=== PATIENT | male | born 1985 | race African-American/Black ===

== ENCOUNTER 2016-10-02 14:16 | Inpatient (IN) | payer MEDICAID, OTHER ==
--- NOTE | 2016-10-02 16:03 | ED ---
General Adult HPI - General Chief complaint: Psychiatric Symptoms Stated complaint: Mental Health Time Seen by Provider: 10/02/16 14:30 Source: patient, RN notes reviewed Mode of arrival: ambulatory Limitations: no limitations - History of Present Illness Initial comments: This is a 31-year-old male with past medical history significant for depression. Patient states on multiple medications for depression. Patient comes into the emergency department today because 3 days ago he is kicked out of school friends house and now is in a town where he knows no one has nowhere to stay he states is very depressed. Patient states he's thinking of killing himself by hanging himself or cutting himself or doing whatever he can harm himself. Patient is very tearful throughout the interview. Patient states he has never tried to commit suicide in the past. Patient denies any drug use patient denies any alcohol use. Patient denies any physical complaints today. Patient denies any headache patient denies numbness weakness. Patient denies any chest pain difficulty breathing or shortness of breath. Patient denies any palpitations. Patient denies abdominal pain patient denies nausea vomiting diarrhea. Patient denies any recent fever chills or cough. - Related Data Home Medications Medication Instructions Recorded Confirmed Amitriptyline HCl [Elavil] 10 mg PO HS 10/02/16 10/02/16 Unknown Anxiety Med 1 tab PO DAILY PRN 10/02/16 10/02/16 Venlafaxine HCl ER [Effexor Xr] 150 mg PO DAILY 10/02/16 10/02/16 Allergies Allergy/AdvReac Type Severity Reaction Status Date / Time No Known Allergies Allergy Verified 10/02/16 15:25 Review of Systems ROS Statement: Those systems with pertinent positive or pertinent negative responses have been documented in the HPI. ROS Other: All systems not noted in ROS Statement are negative. Past Medical History Past Medical History: No Reported History Past Surgical History: No Surgical Hx Reported Past Psychological History: Anxiety, Depression Smoking Status: Never smoker Past Alcohol Use History: None Reported Past Drug Use History: None Reported General Exam - General Exam Comments Initial Comments: GENERAL: Patient is well-developed and well-nourished. Patient is nontoxic and well- hydrated and is in no acute distress. ENT: Neck is soft and supple. No significant lymphadenopathy is noted. Oropharynx is clear. Moist mucous membranes. Neck has full range of motion without eliciting any pain. EYES: The sclera were anicteric and conjunctiva were pink and moist. Extraocular movements were intact and pupils were equal round and reactive to light. Eyelids were unremarkable. PULMONARY: Unlabored respirations. Good breath sounds bilaterally. No audible rales rhonchi or wheezing was noted. CARDIOVASCULAR: There is a regular rate and rhythm without any murmurs gallops or rubs. ABDOMEN: Soft and nontender with normal bowel sounds. SKIN: Skin is clear with no lesions or rashes and otherwise unremarkable. NEUROLOGIC: Patient is alert and oriented x3. Cranial nerves II through XII are grossly intact. Motor and sensory are also intact. Normal speech, volume and content. Symmetrical smile. MUSCULOSKELETAL: Normal extremities with adequate strength and full range of motion. LYMPHATICS: No significant lymphadenopathy is noted PSYCHIATRIC: Patient is very difficult to hold interview and states that he is depressed and wants to harm himself. Limitations: no limitations Course Vital Signs 10/02/16 10/02/16 14:21 16:56 Temperature 98.2 F 97.8 F Pulse Rate 94 Pulse Rate [ 71 Right] Respiratory 20 15 Rate Blood Pressure 165/107 Blood Pressure 129/79 [Right Arm] O2 Sat by Pulse 98 98 Oximetry Medical Decision Making - Lab Data Lab Results 10/02/16 Range/Units 14:44 Urine Opiates Screen Not Detected (NotDetected) Ur Oxycodone Screen Not Detected (NotDetected) Urine Methadone Screen Not Detected (NotDetected) Ur Propoxyphene Screen Not Detected (NotDetected) Ur Barbiturates Screen Not Detected (NotDetected) U Tricyclic Antidepress Not Detected (NotDetected) Ur Phencyclidine Scrn Not Detected (NotDetected) Ur Amphetamines Screen Not Detected (NotDetected) U Methamphetamines Scrn Not Detected (NotDetected) U Benzodiazepines Scrn Not Detected (NotDetected) Urine Cocaine Screen Not Detected (NotDetected) U Marijuana (THC) Screen Detected H (NotDetected) Disposition Clinical Impression: Suicidal ideation, Depression Disposition: ADMITTED IP TO THIS [facility] Time of Disposition: 21:15
[2016-10-02] MEDS ORDERED: MAG HYDROX/AL HYDROX/SIMETH 30 ML CUP PO PRN (16:56)
[2016-10-02] MEDS ORDERED: ACETAMINOPHEN TAB 325 MG TAB PO PRN (16:56)
[2016-10-02] MEDS ORDERED: MAGNESIUM HYDROXIDE 2,400 MG/10 ML CUP PO PRN (16:56)
[2016-10-02 17:02] VITALS: RESP 18
[2016-10-02] MEDS ORDERED: OLANZapine 5 MG TAB ONE (17:55)
[2016-10-02] MEDS ORDERED: OLANZapine 5 MG TAB PO ONE (18:05)
[2016-10-03 00:39] VITALS: BP 121/84; PULSE 85; TEMP 97.4
[2016-10-03] MEDS ORDERED: VENLAFAXINE HCL ER 150 MG CAP PO SCH (09:00)
[2016-10-03 09:06] LABS: Basophils % (A) 0 %; CH 27.2; CHCM 33.9; Eosinophils # (A) 0.1 k/uL (0-0.7); Eosinophils % (A) 1 %; HCT 44.5 % (39.0-53.0); HDW 2.26; HGB 14.9 gm/dL (13.0-17.5); Luc # (Auto) 0.19; Luc % (Auto) 3; Lymphocytes # (A) 1.7 k/uL (1.0-4.8); Lymphocytes % (A) 26 %; MCH 26.9 pg (25.0-35.0); MCHC 33.4 g/dL (31.0-37.0); MCV 80.6 fL (80.0-100.0); Monocytes # (A) 0.3 k/uL (0-1.0); Monocytes % (A) 5 %; Neutrophils # (A) 4.2 k/uL (1.3-7.7); Neutrophils % (A) 64 %; RBC 5.53 m/uL (4.30-5.90); WBC 6.5 k/uL (3.8-10.6); WBC (Perox) 6.76
[2016-10-03 09:20] LABS: ALT 31 U/L (21-72); AST 29 U/L (17-59); Alkaline Phosphatase 67 U/L (38-126); Anion Gap 12 mmol/L; Blood Urea Nitrogen 16 mg/dL (9-20); Calcium 10.1 mg/dL (8.4-10.2); Carbon Dioxide 25 mmol/L (22-30); Chloride 107 mmol/L (98-107); Glucose 130 mg/dL (74-99); Non-African American GFR(MDRD) >60 (>60 ml/min/1.73 sqM); Potassium 4.3 mmol/L (3.5-5.1); Sodium 144 mmol/L (137-145); Total Bilirubin 0.7 mg/dL (0.2-1.3); Total Protein 7.9 g/dL (6.3-8.2)
[2016-10-03] MEDS ORDERED: VENLAFAXINE HCL ER 75 MG CAP PO SCH (09:51)
--- NOTE | 2016-10-03 10:06 | P.HP ---
Psychiatric H&P - . H&P Date: 10/03/16 History & Physical: Allergies Allergy/AdvReac Type Severity Reaction Status Date / Time No Known Allergies Allergy Verified 10/02/16 15:25 Vital Signs Temp 97.4 F L 10/03/16 00:37 Pulse 85 10/03/16 00:37 Resp 18 10/03/16 00:37 BP 121/84 10/03/16 00:37 Pulse Ox 97 10/02/16 17:02 Intake & Output 10/02/16 10/03/16 10/03/16 18:59 06:59 18:59 Weight 86.183 kg Laboratory Last Values WBC 6.5 k/uL (3.8-10.6) 10/03/16 08:44 RBC 5.53 m/uL (4.30-5.90) 10/03/16 08:44 Hgb 14.9 gm/dL (13.0-17.5) 10/03/16 08:44 Hct 44.5 % (39.0-53.0) 10/03/16 08:44 MCV 80.6 fL (80.0-100.0) 10/03/16 08:44 MCH 26.9 pg (25.0-35.0) 10/03/16 08:44 MCHC 33.4 g/dL (31.0-37.0) 10/03/16 08:44 RDW 13.0 % (11.5-15.5) 10/03/16 08:44 Plt Count 233 k/uL (150-450) 10/03/16 08:44 Neutrophils % 64 % 10/03/16 08:44 Lymphocytes % 26 % 10/03/16 08:44 Monocytes % 5 % 10/03/16 08:44 Eosinophils % 1 % 10/03/16 08:44 Basophils % 0 % 10/03/16 08:44 Neutrophils # 4.2 k/uL (1.3-7.7) 10/03/16 08:44 Lymphocytes # 1.7 k/uL (1.0-4.8) 10/03/16 08:44 Monocytes # 0.3 k/uL (0-1.0) 10/03/16 08:44 Eosinophils # 0.1 k/uL (0-0.7) 10/03/16 08:44 Basophils # 0.0 k/uL (0-0.2) 10/03/16 08:44 Urine Opiates Screen Not Detected (NotDetected) 10/02/16 14:44 Ur Oxycodone Screen Not Detected (NotDetected) 10/02/16 14:44 Urine Methadone Screen Not Detected (NotDetected) 10/02/16 14:44 Ur Propoxyphene Screen Not Detected (NotDetected) 10/02/16 14:44 Ur Barbiturates Screen Not Detected (NotDetected) 10/02/16 14:44 U Tricyclic Antidepress Not Detected (NotDetected) 10/02/16 14:44 Ur Phencyclidine Scrn Not Detected (NotDetected) 10/02/16 14:44 Ur Amphetamines Screen Not Detected (NotDetected) 10/02/16 14:44 U Methamphetamines Scrn Not Detected (NotDetected) 10/02/16 14:44 U Benzodiazepines Scrn Not Detected (NotDetected) 10/02/16 14:44 Urine Cocaine Screen Not Detected (NotDetected) 10/02/16 14:44 U Marijuana (THC) Screen Detected (NotDetected) H 10/02/16 14:44 10/03/16 09:27 DATE OF SERVICE: 10/03/2016 IDENTIFYING DATA: This patient is a 31-year-old single -Malawian male who was admitted to the mental health unit through urgency room on a voluntary admission.. HISTORY OF PRESENT ILLNESS: The patient presents with report of being kicked out by his girlfriend, feeling worthless, hopeless, helpless. States he began to think that he was a loser and would never get out of this situation, and that he should just kill himself. Had thoughts of going to a store and buying a blade, or rope or something else. States he did not kill himself or go to the store because he was feeling weak he hadn't eaten and tired. States that he has been unable to keep a job for longer than a month. He is currently taking Effexor XR 150 mg and some unknown dose of amitriptyline. States he has had trials of different medications, with 1 psychiatric admission, and one observation in a [facility]. Reports depressed mood, suicidal ideation, helplessness, hopelessness, worthlessness. Patient does not endorse periods of increased energy/decreased need for sleep/ risk taking behavior. Patient does not endorse hearing voices or believing that he has special davis or that people can communicate with him or control his thoughts. . PAST PSYCHIATRIC HISTORY: Has been to ER in [place], observed, one admission to [facility]? [facility] [place], seeing a therapist who recommended he check in voluntarily. Treated with zoloft, effexor xr, fluoxetine, trazoden, amitriptyline. ? not sure if he took abilify. Corinne Jose in [place], last time saw her a few months ago Taking Effexo XR 150mg, ?amitriptyline 10mg. . PAST MEDICAL HISTORY: denies. ALLERGIES: No known drug allergies. CHEMICAL DEPENDENCY HISTORY: ETOH, weekends, maybe few times in week, 6pack might be the most he drinks over the night, drank liquor but cannot recall when , maybe last, marijuana weekly. denies cocaine, meth, denies injecting drug. Denies misuse of prescription drugs. FAMILY PSYCHIATRIC HISTORY: Does not know.. FAMILY CHEMICAL DEPENDENCY HISTORY:Does not know. LEGAL HISTORY: Denies current, past hx of disorderly conduct 2009. . SOCIAL HISTORY: [Born in [place], raised in , raised by his single mother, 2 sisters and 1 brother but never lived with them, half sibling and raised by their bio-mothers. Academically average but kicked out due to lack of attendance, GED 2005. He moved away at to [place], them moved to [place]. Never . Had been involved with GF who kicked him out for 2 years on and off. SHe kicked him out due to him lying, patient is vague about this. Says he has been unable to work more than a month. Has a half sister here in . Mother lives in [place]. MENTAL STATUS EXAM: Patient alert and oriented 3, good eye contact, fair groomed in hospital attire. Speech normal volume, rate and production. Psychomotor retardation Coherent, logical and goal directed thought process. No JEANNIE, no FOI. No TB/TW/ TI Denied auditory and visual hallucinations. Denied paranoid ideation, delusions or IOR. Memory grossly intact Cognition average Mood dysphoric, affect constricted, congruent with mood. + suicidal ideation, denies homicidal ideation. Insight none; Judgment grossly impaired for treatment purposes . STRENGTHS: Verbal. WEAKNESSES: Lack of housing/income. IMPRESSIONS: 31-year-old single -Mal[place]ian male, with history of depression, multiple trials of antidepressants with unknown response. Now with social economic stressor of being homeless, became suicidal No clear evidence of significant substance use, although his UDS was positive for cannabis. No evidence of kelly or hypomania or psychosis, no episodes endorsed in the past of kelly hypomania or psychosis. Vague about childhood, and no history related to family mental illness or substance use. Depressive disorder, unspecified R/O major depressive disorder recurrent R/O adjustment disorder with depression Cannabis disorder use, moderate PLAN: Continue psychiatric inpatient hospitalization, for safety purposes, assessment and treatment of mental illness. Suicide precaution 15 minute checks. Release of information to his treating psychiatrists in [place]. Increase Effexor XR to 225 mg daily. Discussed lithium as helpful and depression as well as suicide. Patient agreed. Discussed discharge planning with respect to housing, patient has no one here that he can rely upon for possible housing so he will have to be discharged to a [facility]. Will need to begin setting up follow-up appointments with [facility]. Encouraged to attend groups. Assess and monitor response to treatment. 10/03/16 09:56
--- NOTE | 2016-10-03 12:52 | P.DS ---
Providers Date of admission: 10/02/16 16:54 Attending physician: Oxana Looney MD Consults: 10/02/16 16:56 Consult Physician Routine Consulting Provider: Milind England Consult Reason/Comments: follow up H & P Do you want consulting provider notified?: Yes Primary care physician: Stated None Hospital Course: Received news from staff that patient had contacted his cousin, from [place], who it turns out is now in town. Cousin has told patient that if he wants to he can return with him to [place] and stay with him. Called patient he came and said he had good news that he can go stay with his cousin and his cousin will help him out. Patient's mood was euthymic, affect full range normal intensity. Smiling. Patient denied suicidal ideation, reported "remember I told you that it was just my situation" MENTAL STATUS EXAM: Patient alert and oriented 3, good eye contact, fair groomed in hospital attire. Speech normal volume, rate and production. No psychomotor retardation Coherent, logical and goal directed thought process. No JEANNIE, no FOI. No TB/TW/ TI Denied auditory and visual hallucinations. Denied paranoid ideation, delusions or IOR. Memory grossly intact Cognition average Mood euthymic, affect full range, congruent with mood. Denies suicidal ideation, denies homicidal ideation. Insight none; Judgment grossly impaired for treatment purposes IMPRESSIONS: 31-year-old single -[place] male, with history of depression, multiple trials of antidepressants with unknown response. Now with social economic stressor of being homeless, became suicidal No clear evidence of significant substance use, although his UDS was positive for cannabis. No evidence of kelyl or hypomania or psychosis, no episodes endorsed in the past of kelly hypomania or psychosis. Vague about childhood, and no history related to family mental illness or substance use. ADMISSION DIAGNOSES: Depressive disorder, unspecified R/O major depressive disorder recurrent R/O adjustment disorder with depression Cannabis disorder use, moderate DISCHARGE DIAGNOSES: Homelessness Depression, unspecified versus R/O adjustment disorder Cannabis disorder use R/O malingering PLAN: Patient's mood resolved, suicidal ideation resolved Can be discharged. He reports he has one week of effexor 150mg will give one week. Patient will f/u with outpatient clinic in [place]. Pertinent Studies: none Procedures: none Plan - Discharge Summary New Discharge Prescriptions: No Action Venlafaxine HCl ER [Effexor Xr] 150 mg PO DAILY Amitriptyline HCl [Elavil] 10 mg PO HS Unknown Anxiety Med 1 tab PO DAILY PRN PRN Reason: Anxiety Discharge Medication List Amitriptyline HCl [Elavil] 10 mg PO HS 10/02/16 [History] Unknown Anxiety Med 1 tab PO DAILY PRN 10/02/16 [History] Venlafaxine HCl ER [Effexor Xr] 150 mg PO DAILY 10/02/16 [History] Follow up Appointment(s)/Referral(s): None,Stated [Primary Care Provider] - 1-2 days
--- NOTE | 2016-10-03 14:01 | P.CONS ---
History of Present Illness - Reason for Consult Consult date: 10/03/16 Medical management - History of Present Illness This is a 31-year-old -[place] male with past history of depression and anxiety. Patient states he was feeling suicidal after he broke up with his girlfriend and also got kicked out of his current living situation. Patient apparently is from [place] and moved here 3 weeks ago. He states he was feeling very hopeless as he had no place to live no money and no job. He states his suicidal thoughts were worsening and he came into [facility] for evaluation. Blood sugar was 1:30, TSH 1.240, urine drug screen was positive for marijuana. Patient was admitted to the mental health unit. Review of Systems All systems: negative Constitutional: Denies chills, Denies fever Eyes: denies blurred vision, denies pain Ears, nose, mouth and throat: Denies headache, Denies sore throat Cardiovascular: Denies chest pain, Denies shortness of breath Respiratory: Denies cough Gastrointestinal: Denies abdominal pain, Denies diarrhea, Denies nausea, Denies vomiting Musculoskeletal: Denies myalgias Integumentary: Denies pruritus, Denies rash Neurological: Denies numbness, Denies weakness Psychiatric: Reports depression, Reports hopelessness, Reports suicidal ideation , Denies anxiety Endocrine: Denies fatigue, Denies weight change Past Medical History Past Medical History: No Reported History Past Surgical History: No Surgical Hx Reported Past Psychological History: Anxiety, Depression Smoking Status: Never smoker Past Alcohol Use History: None Reported Past Drug Use History: None Reported Medications and Allergies Home Medications Medication Instructions Recorded Confirmed Type Amitriptyline HCl [Elavil] 10 mg PO HS 10/02/16 10/02/16 History Allergies Allergy/AdvReac Type Severity Reaction Status Date / Time No Known Allergies Allergy Verified 10/02/16 15:25 Physical Exam Vitals: Vital Signs Temp Pulse Pulse Resp BP BP Pulse Ox 10/03/16 00:37 97.4 F L 85 18 121/84 10/02/16 17:02 98.6 F 76 18 134/93 97 10/02/16 16:56 97.8 F 71 15 129/79 98 10/02/16 14:21 98.2 F 94 20 165/107 98 Gen: This is a 31-year-old -[place]vad[place] male. He is cooperative and appears to be in no acute distress. HEENT: Head is atraumatic, normocephalic. Pupils equal, round. Sclerae is anicteric. NECK: Supple. No JVD. No lymphadenopathy. No thyromegaly. LUNGS: Clear to auscultation. No wheezes or rhonchi. No intercostal retractions. HEART: Regular rate and rhythm. No murmur. ABDOMEN: Soft. Bowel sounds are present. No masses. No tenderness. EXTREMITIES: No pedal edema. No calf tenderness. NEUROLOGICAL: Patient is awake, alert and oriented x3. Cranial nerves 2 through 12 are grossly intact. Results CBC & Chem 7: 10/03/16 08:44 10/03/16 08:44 Labs: Abnormal Lab Results - Last 24 Hours (Table) 10/02/16 10/03/16 Range/Units 14:44 08:44 Glucose 130 H (74-99) mg/dL U Marijuana (THC) Screen Detected H (NotDetected) Assessment and Plan Plan: 1. Depression recurrent with suicidal ideation. Patient admitted to the mental health unit. Continue current plan of care. 2. Marijuana use. Continue as in #1. 3. No tobacco use.. Impression and plan of care have been directed as dictated by the signing physician. Anabel Mike nurse practitioner acting as scribe for signing physician.
[2016-10-03] MEDS ORDERED: LITHIUM CARBONATE 150 MG CAP PO SCH (21:00)
[2016-10-04] MEDS ORDERED: VENLAFAXINE HCL ER 75 MG CAP PO SCH (09:00)
[2016-10-04] MEDS ORDERED: VENLAFAXINE HCL ER 150 MG CAP PO SCH (09:00)
== END 2016-10-03 14:32 | disposition home or self-care (01) | DRG 881 ==
LOC: EC 14:16 → 3MHU 16:54
PROVIDERS: ADMIT Psychiatry & Neurology Addiction Medicine; ATTEND Psychiatry & Neurology Addiction Medicine
DX: F32.9 Major depressive disorder, single episode, unspecified (principal); R45.851 Suicidal ideations; F43.20 Adjustment disorder, unspecified; F41.9 Anxiety disorder, unspecified; F12.90 Cannabis use, unspecified, uncomplicated; Z76.5 Malingerer [conscious simulation]; Z59.0 Homelessness; Z79.899 Other long term (current) drug therapy
CPT/HCPCS: 80053; 80306; 82075; 84443; 85025; 99285

== ENCOUNTER → 2018-11-02 | Outpatient (CLI) | payer OTHER ==
--- NOTE | 2018-11-02 09:08 | XR ---
EXAMINATION TYPE: XR pelvis AP view DATE OF EXAM: 11/02/2018 CLINICAL HISTORY: pain TECHNIQUE: Single view the pelvis is submitted. FINDINGS: No evidence for fracture, dislocation or bony lesion. Joint spaces are well-preserved. S I joints appear symmetric. IMPRESSION: 1. No acute fracture or dislocation seen. ICD 10 NO FRACTURE, INITIAL EVALUATION
--- NOTE | 2018-11-02 09:41 | US ---
See dictated report right groin same date
--- NOTE | 2018-11-02 09:49 | US ---
EXAMINATION TYPE: US groin RT DATE OF EXAM: 11/02/2018 COMPARISON: US Scrotum CLINICAL HISTORY: R10.31 Right lower quadrant pain, R10.32 Left. Bilateral groin pain with left > rig ht. 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 No significant injury. Bilateral groin scanned. Right groin- lymph node visualized = 2.2 x 1.2 x 0.8 cm. Bowel visualized in inguinal canal. Valsalv a performed. Left groin- bowel visualized in inguinal canal. Valsalva performed. IMPRESSION: Correlate for bilateral inguinal hernias. Normal appearing node present within the right groin.
--- NOTE | 2018-11-02 09:50 | US ---
EXAMINATION TYPE: US scrotum with doppler. Grayscale and color Doppler Duplex imaging performed of makenzie beavers scrotum. DATE OF EXAM: 11/02/2018 COMPARISON: NONE CLINICAL HISTORY: R10.31 Right lower quadrant pain, R10.32 Left. Bilateral groin pain. Patient is a r unner. No significant injury. No testicular swelling. EXAM MEASUREMENTS: TESTICLES: Right Testicle: 4.0 x 3.1 x 2.6 cm Left Testicle: 3.6 x 4.0 x 2.3 cm EPIDIDYMIS HEAD: Right Epididymis: 0.9 x 1.2 x 0.9 cm Left Epididymis: 0.9 x 0.9 x 1.1 cm Doppler performed to assess for testicular vascularity; color flow, vascular waveforms noted to both testes. Presence of hydroceles: no Presence of varicoceles: no Testicular echotexture is homogenous and symmetric. IMPRESSION: Normal scrotal ultrasound, see dictated report from groin ultrasound same date.
== END | disposition home or self-care (01) ==
LOC: RADUSWWP 07:30
PROVIDERS: ATTEND Family Medicine
DX: R10.32 Left lower quadrant pain (principal); R10.31 Right lower quadrant pain
CPT/HCPCS: 72170; 76870; 93975

== ENCOUNTER 2021-10-30 11:51 | Emergency (ER) | payer OTHER ==
[2021-10-30 12:05] VITALS: RESP 18; TEMP 98.2
[2021-10-30] MEDS ORDERED: SODIUM CHLORIDE 0.9% 1,000 ML IV STA (12:08)
[2021-10-30] MEDS ORDERED: LORazepam 1 MG TAB PO STA (12:10)
--- NOTE | 2021-10-30 12:18 | ED ---
General Adult HPI - General Chief complaint: Overdose Stated complaint: OD Time Seen by Provider: 10/30/21 12:00 Source: patient, RN notes reviewed, old records reviewed Mode of arrival: EMS Limitations: no limitations - History of Present Illness Initial comments: This is a 36-year-old male who is brought in by EMS. Patient states he was drinking this morning ate an apple and then did some cocaine. Patient states after the cocaine he just didn't feel right. Little short of breath and lightheaded and the little bit nauseated. Patient states he had no chest pain or palpitations. Patient denied any vomiting. Patient denies abdominal pain. Patient keeps stating that he just doesn't feel right. Patient states she's done cocaine before but has never had this experience. Patient denies any recent fever chills cough or illness. Patient denies any recent injury or trauma. - Related Data Home Medications Medication Instructions Recorded Confirmed Amitriptyline HCl [Elavil] 10 mg PO HS 10/02/16 10/02/16 Previous Rx's Medication Instructions Recorded Venlafaxine HCl ER [Effexor XR] 150 mg PO DAILY #7 10/03/16 Allergies Allergy/AdvReac Type Severity Reaction Status Date / Time No Known Allergies Allergy Verified 10/02/16 15:25 Review of Systems ROS Statement: Those systems with pertinent positive or pertinent negative responses have been documented in the HPI. ROS Other: All systems not noted in ROS Statement are negative. Past Medical History Past Medical History: No Reported History Past Surgical History: No Surgical Hx Reported Past Psychological History: Anxiety, Depression Past Alcohol Use History: None Reported Past Drug Use History: Cocaine General Exam - General Exam Comments Initial Comments: GENERAL: Patient is well-developed and well-nourished. Patient is nontoxic and well- hydrated and is in mild distress. ENT: Neck is soft and supple. No significant lymphadenopathy is noted. Oropharynx is clear. Moist mucous membranes. Neck has full range of motion without eliciting any pain. EYES: The sclera were anicteric and conjunctiva were pink and moist. Extraocular movements were intact and pupils were equal round and reactive to light. Eyelids were unremarkable. PULMONARY: Unlabored respirations. Good breath sounds bilaterally. No audible rales rhonchi or wheezing was noted. CARDIOVASCULAR: Patient is tachycardic at 120 beats a minute. ABDOMEN: Soft and nontender with normal bowel sounds. SKIN: Skin is clear with no lesions or rashes and otherwise unremarkable. NEUROLOGIC: Patient is alert and oriented x3. Cranial nerves II through XII are grossly intact. Motor and sensory are also intact. Normal speech, volume and content. Symmetrical smile. MUSCULOSKELETAL: Normal extremities with adequate strength and full range of motion. LYMPHATICS: No significant lymphadenopathy is noted PSYCHIATRIC: Normal psychiatric evaluation. Limitations: no limitations Course Vital Signs 10/30/21 10/30/21 12:01 12:42 Temperature 98.2 F Pulse Rate 94 85 Respiratory 18 18 Rate Blood Pressure 153/111 129/91 O2 Sat by Pulse 93 L Oximetry Medical Decision Making - Medical Decision Making EKG shows sinus rhythm at 91 bpm [place] interval 292 QRS is 95 QT interval 359 QTC is 47. Patient's EKG shows no ST segment elevation or depression. - Lab Data Result diagrams: 10/30/21 12:26 10/30/21 12:26 Lab Results 10/30/21 10/30/21 10/30/21 Range/Units 12:16 12:26 12:26 WBC 8.0 (3.8-10.6) k/uL RBC 5.06 (4.30-5.90) m/uL Hgb 13.1 (13.0-17.5) gm/dL Hct 40.8 (39.0-53.0) % MCV 80.6 (80.0-100.0) fL MCH 26.0 (25.0-35.0) pg MCHC 32.2 (31.0-37.0) g/dL RDW 13.7 (11.5-15.5) % Plt Count 207 (150-450) k/uL MPV 8.3 Neutrophils % 74 % Lymphocytes % 15 % Monocytes % 6 % Eosinophils % 3 % Basophils % 0 % Neutrophils # 6.0 (1.3-7.7) k/uL Lymphocytes # 1.2 (1.0-4.8) k/uL Monocytes # 0.5 (0-1.0) k/uL Eosinophils # 0.2 (0-0.7) k/uL Basophils # 0.0 (0-0.2) k/uL PT 12.1 H (9.0-12.0) sec INR 1.1 (<1.2) APTT 31.2 H (22.0-30.0) sec Sodium (137-145) mmol/L Potassium (3.5-5.1) mmol/L Chloride (98-107) mmol/L Carbon Dioxide (22-30) mmol/L Anion Gap mmol/L BUN (9-20) mg/dL Creatinine (0.66-1.25) mg/dL Est GFR (CKD-EPI)AfAm (>60 ml/min/1.73 sqM) Est GFR (CKD-EPI)NonAf (>60 ml/min/1.73 sqM) Glucose (74-99) mg/dL Calcium (8.4-10.2) mg/dL Magnesium (1.6-2.3) mg/dL Total Bilirubin (0.2-1.3) mg/dL AST (17-59) U/L ALT (4-49) U/L Alkaline Phosphatase (38-126) U/L Troponin I (0.000-0.034) ng/mL Total Protein (6.3-8.2) g/dL Albumin (3.5-5.0) g/dL Urine Opiates Screen Not Detected (NotDetected) Ur Oxycodone Screen Not Detected (NotDetected) Urine Methadone Screen Not Detected (NotDetected) Ur Propoxyphene Screen Not Detected (NotDetected) Ur Barbiturates Screen Not Detected (NotDetected) U Tricyclic Antidepress Not Detected (NotDetected) Ur Phencyclidine Scrn Not Detected (NotDetected) Ur Amphetamines Screen Detected H (NotDetected) U Methamphetamines Scrn Detected H (NotDetected) U Benzodiazepines Scrn Not Detected (NotDetected) Urine Cocaine Screen Detected H (NotDetected) U Marijuana (THC) Screen Detected H (NotDetected) 10/30/21 10/30/21 Range/Units 12:26 12:26 WBC (3.8-10.6) k/uL RBC (4.30-5.90) m/uL Hgb (13.0-17.5) gm/dL Hct (39.0-53.0) % MCV (80.0-100.0) fL MCH (25.0-35.0) pg MCHC (31.0-37.0) g/dL RDW (11.5-15.5) % Plt Count (150-450) k/uL MPV Neutrophils % % Lymphocytes % % Monocytes % % Eosinophils % % Basophils % % Neutrophils # (1.3-7.7) k/uL Lymphocytes # (1.0-4.8) k/uL Monocytes # (0-1.0) k/uL Eosinophils # (0-0.7) k/uL Basophils # (0-0.2) k/uL PT (9.0-12.0) sec INR (<1.2) APTT (22.0-30.0) sec Sodium 137 (137-145) mmol/L Potassium 4.4 (3.5-5.1) mmol/L Chloride 103 (98-107) mmol/L Carbon Dioxide 25 (22-30) mmol/L Anion Gap 9 mmol/L BUN 13 (9-20) mg/dL Creatinine 1.07 (0.66-1.25) mg/dL Est GFR (CKD-EPI)AfAm >90 (>60 ml/min/1.73 sqM) Est GFR (CKD-EPI)NonAf >90 (>60 ml/min/1.73 sqM) Glucose 97 (74-99) mg/dL Calcium 9.7 (8.4-10.2) mg/dL Magnesium 1.8 (1.6-2.3) mg/dL Total Bilirubin 1.0 (0.2-1.3) mg/dL AST 42 (17-59) U/L ALT 23 (4-49) U/L Alkaline Phosphatase 54 (38-126) U/L Troponin I <0.012 (0.000-0.034) ng/mL Total Protein 8.1 (6.3-8.2) g/dL Albumin 4.9 (3.5-5.0) g/dL Urine Opiates Screen (NotDetected) Ur Oxycodone Screen (NotDetected) Urine Methadone Screen (NotDetected) Ur Propoxyphene Screen (NotDetected) Ur Barbiturates Screen (NotDetected) U Tricyclic Antidepress (NotDetected) Ur Phencyclidine Scrn (NotDetected) Ur Amphetamines Screen (NotDetected) U Methamphetamines Scrn (NotDetected) U Benzodiazepines Scrn (NotDetected) Urine Cocaine Screen (NotDetected) U Marijuana (THC) Screen (NotDetected) Disposition Clinical Impression: Cocaine abuse, Methamphetamine abuse Disposition: HOME SELF-CARE Condition: Good Instructions (If sedation given, give patient instructions): Polysubstance Abuse (ED) Additional Instructions: Patient should stop doing any illegal drugs Is patient prescribed a controlled substance at d/c from ED?: No Referrals: None,Stated [Primary Care Provider] - 1-2 days Time of Disposition: 13:42
--- NOTE | 2021-10-30 12:26 | XR ---
EXAMINATION TYPE: XR chest 2V DATE OF EXAM: 10/30/2021 CLINICAL HISTORY: Chest pain TECHNIQUE: Frontal and lateral views of the chest are obtained. COMPARISON: None FINDINGS: There is no focal air space opacity, pleural effusion, or pneumothorax seen. The cardiac silhouette size is within normal limits. The osseous structures are intact. IMPRESSION: No acute cardiopulmonary process.
[2021-10-30 12:30] LABS: Basophils % (A) 0 %; Eosinophils # (A) 0.2 k/uL (0-0.7); Eosinophils % (A) 3 %; HCT 40.8 % (39.0-53.0); HGB 13.1 gm/dL (13.0-17.5); Lymphocytes # (A) 1.2 k/uL (1.0-4.8); Lymphocytes % (A) 15 %; MCHC 32.2 g/dL (31.0-37.0); MCV 80.6 fL (80.0-100.0); Mean Platelet Volume 8.3; Monocytes # (A) 0.5 k/uL (0-1.0); Monocytes % (A) 6 %; Neutrophils % (A) 74 %; Platelet Count 207 k/uL (150-450); RBC 5.06 m/uL (4.30-5.90); RDW 13.7 % (11.5-15.5)
[2021-10-30 12:40] LABS: INR 1.1 (<1.2); Partial Thromboplastin Time 31.2 sec (22.0-30.0); Prothrombin Time 12.1 sec (9.0-12.0)
[2021-10-30 12:43] VITALS: BP 129/91; PULSE 85
[2021-10-30 12:47] LABS: ALT 23 U/L (4-49); AST 42 U/L (17-59); African American GFR (CKD) >90 (>60 ml/min/1.73 sqM); Albumin 4.9 g/dL (3.5-5.0); Alkaline Phosphatase 54 U/L (38-126); Anion Gap 9 mmol/L; Blood Urea Nitrogen 13 mg/dL (9-20); Calcium 9.7 mg/dL (8.4-10.2); Carbon Dioxide 25 mmol/L (22-30); Chloride 103 mmol/L (98-107); Glucose 97 mg/dL (74-99); Magnesium 1.8 mg/dL (1.6-2.3); Non-African American GFR(CKD) >90 (>60 ml/min/1.73 sqM); Sodium 137 mmol/L (137-145); Total Protein 8.1 g/dL (6.3-8.2)
[2021-10-30 12:55] LABS: Potassium 4.4 mmol/L (3.5-5.1)
[2021-10-30 13:32] LABS: Amphetamine Screen,Urine Detected (NotDetected); Barbiturate Screen,Urine Not Detected (NotDetected); Benzodiazepines Screen,Urine Not Detected (NotDetected); Cocaine Screen,Urine Detected (NotDetected); Methadone Screen, Urine Not Detected (NotDetected); Opiate Screen,Urine Not Detected (NotDetected); Oxycodone Screen, Urine Not Detected (NotDetected); Phencyclidine Screen,Urine Not Detected (NotDetected); Tricyclic Antidepressant,Urine Not Detected (NotDetected); Urn Cannabinoid Scrn Detected (NotDetected)
== END 2021-10-30 14:07 | disposition home or self-care (01) ==
LOC: EC 11:51
DX: F15.10 Other stimulant abuse, uncomplicated (principal); F14.10 Cocaine abuse, uncomplicated
CPT/HCPCS: 36415; 71046; 80053; 80306; 83735; 84484; 85025; 85610; 85730; 93005; 96360; 99285